=== PATIENT | female | born 1985 ===

== ENCOUNTER 2020-08-09 06:54 | Day surgery (SDC) | payer OTHER ==
[2020-08-09] MEDS ORDERED: PREMARIN1.25 MG PO (11:57)
[2020-08-09] MEDS ORDERED: IBU800 MG PO (11:58)
[2020-08-09] MEDS ORDERED: AMOX1TAB5 PO (11:59)
== END 2020-08-09 16:59 | disposition home or self-care (01) ==
LOC: CIR.AMB 06:54
PROVIDERS: ATTEND Obstetrics & Gynecology Gynecology
DX: D25.0 Submucous leiomyoma of uterus (principal); Z20.822 Contact with and (suspected) exposure to COVID-19